=== PATIENT | female | born 1980 | race Caucasian/White ===

== ENCOUNTER 2020-02-21 15:37 | Outpatient (CLI) | payer OTHER, SELFPAY ==
--- NOTE | ~2020-02-21 | US_ITS ---
EXAMINATION: US pelvic complete w TV EXAM DATE: 02/21/2020 16:25 INDICATION: Dysmenorrhea. TECHNIQUE: Pelvic transabdominal and transvaginal sonogram was performed. There are multiple graysca le and Doppler images available for interpretation. There is no prior study for comparison. FINDINGS: Uterus measures 8.3 x 4.5 x 4.9 cm, and is morphologically normal. Endometrial stripe joann sures 10 mm, within normal limits for premenopausal status. There are nabothian cysts. There is no free pelvic fluid. Right adnexa: The ovary measures 3.5 x 2.7 x 2.6 cm and is morphologically normal with the dominant f ollicle. Ovarian vascular flow confirmed. Left adnexa: The ovary measures 3.5 x 2.3 x 1.8 cm and is morphologically normal. Ovarian vascular fl ow confirmed. IMPRESSION: 1. Nabothian cysts. Reviewed, dictated and finalized at location A. IMPRESSION: 1. Nabothian cysts.
== END 2020-02-21 15:38 | disposition home or self-care (01) ==
PROVIDERS: PCP Family Medicine
DX: N94.6 Dysmenorrhea, unspecified (principal); N88.8 Other specified noninflammatory disorders of cervix uteri
CPT/HCPCS: 76830; 76856